=== PATIENT | female | born 1965 | race Caucasian/White ===

== ENCOUNTER 2016-09-02 19:24 | Emergency (ER) | payer OTHER ==
[2016-09-02 19:41] VITALS: BP 133/82; PULSE 64; TEMP 97.8; BMI 35.4
--- NOTE | 2016-09-02 19:49 | PDOC ---
History of Present Illness - General Chief Complaint: Poison [place],Poison [place]ia Exposure Stated Complaint: INFECTION Time Seen by Provider: 09/02/16 19:47 History Source: Patient Exam Limitations: No Limitations - History of Present Illness Initial Comments: CHIEF COMPLAINT: 51 y/o afebrile female c/o itchy rash to face, neck and torso. HISTORY OF PRESENT ILLNESS: The patient states 5 days ago she was gardening and then 2 days ago was around poison angelia. She states she's had the itchy rash since yesterday and thinks it's poison angelia. She denies pain, f/c, n/v/d, CP, SOB, facial swelling. The patient states she's had shingles in the past and states this does NOT feel like shingles. Vital signs on arrival are within normal limits. REVIEW OF SYSTEMS: GENERAL/CONSTITUTIONAL: No fever/chills. HEAD, EYES, EARS, NOSE AND THROAT: No change in vision. No ear pain or discharge. No sore throat. CARDIOVASCULAR: No chest pain or shortness of breath. RESPIRATORY: No cough, wheezing, or hemoptysis. SKIN: +itchy rash to torso, face and neck NEUROLOGIC: No headache, vertigo, loss of consciousness, or loss of sensation. PHYSICAL EXAM: GENERAL: The patient is awake, alert, and fully oriented, in no acute distress. SHe is very well appearing. HEAD: Normal with no signs of trauma. ENT: No angioedema or tongue swelling. EXTREMITIES: Normal range of motion, no edema. NEUROLOGICAL: Normal speech, normal gait. SKIN: groups of small, erythematous papules in clusters along right flank and abdomen, scattered papules on right side of face and left neck. Past History - Past Medical History Allergies/Adverse Reactions: Allergies Allergy/AdvReac Type Severity Reaction Status Date / Time No Known Allergies Allergy Verified 09/02/16 19:38 Home Medications: Ambulatory Orders NK [No Known Home Medication] 09/02/16 Cardiac Disorders: Yes (MURMUR) - Immunization History Immunization Up to Date: Yes (flu utd) - Psycho/Social/Smoking Cessation Hx Anxiety: No Suicidal Ideation: No Smoking History: Never smoked Have you smoked in the past 12 months: No Number of Cigarettes Smoked Daily: 0 Information on smoking cessation initiated: No Hx Alcohol Use: No Drug/Substance Use Hx: No Substance Use Type: None *Physical Exam - Vital Signs Last Vital Signs Temp Pulse Resp BP Pulse Ox 97.8 F 64 18 133/82 100 09/02/16 19:39 09/02/16 19:39 09/02/16 19:39 09/02/16 19:39 09/02/16 19:39 Medical Decision Making - Medical Decision Making A/P: 51 y/o afebrile female with poison angelia rash. Plan is as follows: 1. IM kenalog Instructed the patient to return to the ER immediately with any worsening or concerning symptoms. The patient verbalizes understanding of all instructions, has no further questions and is awaiting discharge. *DC/Admit/Observation/Transfer Diagnosis at time of Disposition: Poison angelia - Discharge Dispostion Disposition: HOME Condition at time of disposition: Good - Patient Instructions Printed Discharge Instructions: DI for Poison [place] Allergy Additional Instructions: Discharge Instructions: -You were given an injection of Kenalog to treat your poison angelia -Please return to the ER immediately with any worsening or concerning symptoms
[2016-09-02] MEDS ORDERED: TRIAMCINOLONE ACET 40MG/1ML VIAL IM ONE (19:56)
== END 2016-09-02 20:14 | disposition home or self-care (01) ==
LOC: JERFT 19:24
PROC: 3E033GC Introduction of Other Therapeutic Substance into Peripheral Vein, Percutaneous Approach (ICD-10-PCS; principal; 2016-09-02)
DX: L23.7 Allergic contact dermatitis due to plants, except food (principal)
CPT/HCPCS: 99281-25

== ENCOUNTER 2016-09-04 11:18 | Emergency (ER) | payer OTHER ==
[2016-09-04 11:33] VITALS: BP 144/99; PULSE 70; TEMP 98; BMI 35.4
--- NOTE | 2016-09-04 13:28 | PDOC ---
History of Present Illness - General Chief Complaint: Allergic Reaction Stated Complaint: REVISIT Time Seen by Provider: 09/04/16 13:10 History Source: Patient Exam Limitations: No Limitations - History of Present Illness Initial Comments: 09/04/16 13:53 Patient is a 51-year-old female denies any significant medical history presents emergency department for pruritic rash to right side, right arm left arm and right upper eyelid. Patient reports being seen in the emergency department and diagnosed with possible poison ramón was given Kenalog however patient states that she has severe allergy to poison ramón and usually needs a Medrol Dosepak in order to resolve. Patient here in the emergency department stating that rash is increasing after the Kenalog and is requesting the Medrol Dosepak. Past Medical History: Denies. Allergies: No known allergies Medications: None Family History: Non-contributory Social History: Denies smoking, alcohol use, or IVDU Review of Systems GENERAL/CONSTITUTIONAL: No fever or chills. No weakness. No weight change. HEAD, EYES, EARS, NOSE AND THROAT: No change in vision. No ear pain or discharge. No sore throat. CARDIOVASCULAR: No chest pain or shortness of breath. RESPIRATORY: No cough, wheezing, or hemoptysis. GASTROINTESTINAL: No nausea, vomiting, diarrhea or constipation. No rectal bleeding. GENITOURINARY: No dysuria, frequency, or change in urination. MUSCULOSKELETAL: No joint or muscle swelling or pain. No neck or back pain. SKIN : Fascicular pruritic rash to right lateral torso, right upper eyelid, right upper arm and left upper arm. NEUROLOGIC: No headache, vertigo, loss of consciousness, or loss of sensation. ENDOCRINE: No increased thirst. No abnormal weight change. HEMATOLOGIC/LYMPHATIC: No anemia, easy bleeding, or history of blood clots. ALLERGIC/IMMUNOLOGIC: No hives or skin allergy. No latex allergy. Physical Exam: GENERAL: The patient is awake, alert, and fully oriented, in no acute distress. HEAD: Normal with no signs of trauma. EYES: Pupils equal, round and reactive to light, extraocular movements intact, sclera anicteric, conjunctiva clear. ENT: Ears normal, nares patent, oropharynx clear without exudates. Moist mucous membranes. No uvula deviation NECK: Normal range of motion, supple without lymphadenopathy, JVD, or masses. LUNGS: Breath sounds equal, clear to auscultation bilaterally. No wheezes, and no crackles. HEART: Regular rate and rhythm, normal S1 and S2 without murmur, rub or gallop. ABDOMEN: Soft, nontender, normoactive bowel sounds. No guarding, no rebound. No masses. No bruising or abrasions MUSCULOSKELETAL: Normal range of motion, no edema. No clubbing or cyanosis. No cords, erythema, or tenderness. No CVA Tenderness NEUROLOGICAL: Cranial nerves II through XII grossly intact. Normal speech, normal gait. SKIN: Warm, Dry, normal turgor, vesicular pruritic rash to right lateral torso, right upper arm and left upper arm. Toxicodendron pattern to right upper arm. Past History - Past Medical History Allergies/Adverse Reactions: Allergies Allergy/AdvReac Type Severity Reaction Status Date / Time No Known Allergies Allergy Verified 09/04/16 11:31 Home Medications: Ambulatory Orders Loratadine [Claritin] 10 mg PO DAILY #30 tablet 09/04/16 Methylprednisolone [Medrol Dose Mina] 4 mg PO ASDIR #21 tablet 09/04/16 Ranitidine HCl [Zantac] 150 mg PO DAILY #7 tablet 09/04/16 Cardiac Disorders: Yes (MURMUR) - Immunization History Immunization Up to Date: Yes (flu utd) - Psycho/Social/Smoking Cessation Hx Anxiety: No Suicidal Ideation: No Smoking History: Never smoked Have you smoked in the past 12 months: No Number of Cigarettes Smoked Daily: 0 Hx Alcohol Use: No Drug/Substance Use Hx: No Substance Use Type: None *Physical Exam - Vital Signs Last Vital Signs Temp Pulse Resp BP Pulse Ox 98 F 70 18 144/99 99 09/04/16 11:31 09/04/16 11:31 09/04/16 11:31 09/04/16 11:31 09/04/16 11:31 Medical Decision Making - Medical Decision Making 09/04/16 13:57 A/P: Patient with rash, pruritic. Patient with history of allergic reaction to poison ramón. Eyes any current respiratory complaints. No wheezing. Stridor. Explained to patient that she is to follow-up with dermatology, we will DC on Medrol Dosepak, Zantac and Claritin, questionable allergy to poison ramón . I discussed the physical exam findings, ancillary test results and final diagnoses with the patient. I answered all of the patient's questions. The patient was satisfied with the care received and felt comfortable with the discharge plan and treatment plan. The patient will call to follow-up and will return to the Emergency Department with any new, persistent or worsening symptoms. *DC/Admit/Observation/Transfer Diagnosis at time of Disposition: Rash and nonspecific skin eruption - Discharge Dispostion Disposition: HOME Condition at time of disposition: Good Admit: No - Prescriptions Prescriptions: Loratadine [Claritin] 10 mg PO DAILY #30 tablet Methylprednisolone [Medrol Dose Mina] 4 mg PO ASDIR #21 tablet Ranitidine HCl [Zantac] 150 mg PO DAILY #7 tablet - Referrals Referrals: Ke Saleem [Non Staff, Medical] - Linda Kang MD [Staff Physician] - - Patient Instructions Additional Instructions: Please refrain from rubbing or scratching areas. After 72 hours if symptoms are not starting to resolve recommend follow-up with dermatology If any increased pain tonight, visual disturbance, or any other concerns return to ER
== END 2016-09-04 13:30 | disposition home or self-care (01) ==
LOC: JERFT 11:18
DX: R21 Rash and other nonspecific skin eruption (principal)
CPT/HCPCS: 99281-25

== ENCOUNTER 2016-10-05 10:39 | Emergency (ER) | payer OTHER ==
[2016-10-05 10:52] VITALS: BP 122/74; PULSE 69; TEMP 98.3; BMI 35.4
[2016-10-05] MEDS ORDERED: TRIAMCINOLONE ACET 40MG/1ML VIAL IM ONE (11:26)
--- NOTE | 2016-10-05 11:26 | PDOC ---
History of Present Illness - General Chief Complaint: Poison [place],Poison [place] Exposure Stated Complaint: POSION [place] Time Seen by Provider: 10/05/16 11:00 History Source: Patient Exam Limitations: No Limitations - History of Present Illness Initial Comments: 10/05/16 11:08 Pt. is a 51-year-old female past medical history of allergies to poison kedar, presents to the emergency department today redness on the left side of her face. She was gardening 3 days ago and she may have come into contact with poison kedar. Patient states that the left side of her face became a little red yesterday and swelled up overnight. This is usual for her poison kedar attacks. She states that the area is itchy. Denies visual changes, double vision, pain with extraocular movements. Denies sore throat, ear pain, congestion, fevers, chills, nausea, vomiting, and diarrhea. Past History - Travel Traveled outside of the country in the last 30 days: No Close contact w/someone who was outside of country & ill: No - Past Medical History Allergies/Adverse Reactions: Allergies Allergy/AdvReac Type Severity Reaction Status Date / Time No Known Allergies Allergy Verified 10/05/16 10:49 Home Medications: Ambulatory Orders Loratadine [Claritin] 10 mg PO DAILY #30 tablet 09/04/16 Methylprednisolone [Medrol Dose Mina] 4 mg PO ASDIR #21 tablet 09/04/16 Ranitidine HCl [Zantac] 150 mg PO DAILY #7 tablet 09/04/16 Methylprednisolone [Medrol Dose Mina] 4 mg PO ASDIR #21 tablet 10/05/16 Cardiac Disorders: Yes (MURMUR) - Immunization History Immunization Up to Date: Yes (flu utd) - Psycho/Social/Smoking Cessation Hx Anxiety: No Suicidal Ideation: No Smoking History: Never smoked Have you smoked in the past 12 months: No Number of Cigarettes Smoked Daily: 0 Information on smoking cessation initiated: No Hx Alcohol Use: No Drug/Substance Use Hx: No Substance Use Type: None Review of Systems - Review of Systems Constitutional: No: Chills, Fever, Malaise, Weakness HEENTM: No: Eye Pain, Blurred Vision, Recent change in vision, Double Vision, Ear Pain, Nose Pain, Throat Pain, Throat Swelling, Difficulty Swallowing Respiratory: No: Cough, Shortness of Breath, Stridor Cardiac (ROS): No: Chest Pain, Palpitations, Chest Tightness ABD/GI: No: Diarrhea, Nausea, Vomiting Integumentary: Yes: Pruritus, Rash, Other (swelling to L side of face) *Physical Exam - Vital Signs Last Vital Signs Temp Pulse Resp BP Pulse Ox 98.3 F 69 18 122/74 100 10/05/16 10:49 10/05/16 10:49 10/05/16 10:49 10/05/16 10:49 10/05/16 10:49 - Physical Exam General Appearance: Yes: Nourished, Appropriately Dressed, Other (Swollen L side of face from L eyebrow to L mandible. Breathing easily). No: Apparent Distress HEENT: positive: EOMI, MICHAEL, Normal Voice, TMs Normal, Pharynx Normal. negative : Pharyngeal Erythema, Tonsillar Exudate, Tonsillar Erythema, Rhinorrhea, Excessive drooling Neck: positive: Trachea midline, Supple. negative: Tender, Rigid, Lymphadenopathy (R), Lymphadenopathy (L) Respiratory/Chest: positive: Lungs Clear, Normal Breath Sounds. negative: Respiratory Distress, Accessory Muscle Use Cardiovascular: positive: Regular Rhythm, Regular Rate, S1, S2 (present). negative: Murmur Integumentary: positive: Dry, Warm, Erythema (with associated pruritis), Rash ( swollen L face. Rash begins at the level of the eyebrow and travels down the L cheek to the L mandible. The L lower eye lid is mildly swollen, and the swelling does not extend into the orbit.) Neurologic: positive: oral and maxillofacial surgery resident II-XII NML intact, Fully Oriented, Alert, Normal Mood/ Affect, Normal Response, Motor Strength 5/5 Medical Decision Making - Medical Decision Making 10/05/16 10:34 Pt. is a 51 y/o female with PMH of allergy to poison kedar presents to the ED with complaints of redness, swelling and itching to the left side of her face following some gardening 3 days ago. Given pt's history of severe skin reactions to poison kedar, will treat with 40mg kenolog IM and a Medrol dose pack. Pt. is instructed to continue using over the counter hydrocortisone 1% as stronger steroids are not indicated for the face. Pt. is also instructed to take zyrtec daily. Pt. has no difficulty breathing and does not feel short of breath. Instructed patient to follow up with her primary care doctor in the next two days. Also advised pt to follow up with ophthalmology as the rash is close to the eye. Will discharge home at this time. Pt. understands all discharge instructions and all questions were answered at this time. *DC/Admit/Observation/Transfer Diagnosis at time of Disposition: Poison kedar - Discharge Dispostion Disposition: HOME Condition at time of disposition: Improved Admit: No - Prescriptions Prescriptions: Methylprednisolone [Medrol Dose Mina] 4 mg PO ASDIR #21 tablet - Referrals Referrals: Sagar Pritchard MD [Primary Care Provider] - 24 hours Jermaine Houser MD [Staff Physician] - 3 days - Patient Instructions Printed Discharge Instructions: DI for Poison [place] Allergy Additional Instructions: You have an allergic reaction to poison kedar. Your given a steroid injection today in the emergency department. Your also prescribed a Medrol Dosepak. Take the dose pack as prescribed and take the entire pack even if you feel better. Avoid poison kedar to limit your exposure. He may use 1% [id number] hydrocortisone cream on your face as needed for itch. Do not put this medication around her eye. Follow up with you primary care doctor within one week. Also if you have any changes in your vision call the kennel keeper. You were given a referral in her discharge instructions. Return to the emergency department if you have any new fevers, chills, worsening of your rash, headache, or any changes in your symptoms.
== END 2016-10-05 12:02 | disposition home or self-care (01) ==
LOC: JERFT 10:39
PROC: 3E0233Z Introduction of Anti-inflammatory into Muscle, Percutaneous Approach (ICD-10-PCS; principal; 2016-10-05)
DX: L23.7 Allergic contact dermatitis due to plants, except food (principal)
CPT/HCPCS: 96372; 99281-25

== ENCOUNTER 2018-02-20 17:39 | Emergency (ER) | payer OTHER ==
--- NOTE | 2018-02-20 17:45 | PDOC ---
Rapid Medical Evaluation Chief Complaint: Wheezing Time Seen by Provider: 02/20/18 17:43 Medical Evaluation: Allergies Allergy/AdvReac Type Severity Reaction Status Date / Time No Known Allergies Allergy Verified 10/05/16 10:49 02/20/18 17:44 Pt c/o: cough, nasal congestion and wheezing Pt on exam: LCTA, VSS Pt ordered for: none Pt to proceed to the ED Discharge Disposition - Diagnosis URI (upper respiratory infection) - Referrals Referrals: Sagar Pritchard MD [Primary Care Provider] - - Patient Instructions - Post Discharge Activity
[2018-02-20 17:46] VITALS: BP 131/90; PULSE 74; TEMP 97.4; BMI 35.4
[2018-02-20] MEDS ORDERED: DEXAMETHASONE LIQUID 0.5 MG/5 ML 240 ML BULK BOTTLE PO ONE (18:03)
[2018-02-20] MEDS ORDERED: DEXAMETHASONE SOD PHOSPHATE 10 MG/1 ML VIAL ONE (18:05)
--- NOTE | 2018-02-20 18:22 | PDOC ---
History of Present Illness - General Chief Complaint: Wheezing Stated Complaint: Wheezing Time Seen by Provider: 02/20/18 17:43 - History of Present Illness Initial Comments: 02/20/18 18:20 52-year-old female without comorbidities presents for evaluation of cough 5 days without systemic symptoms. Past History - Past Medical History Allergies/Adverse Reactions: Allergies Allergy/AdvReac Type Severity Reaction Status Date / Time No Known Allergies Allergy Verified 10/05/16 10:49 Home Medications: Ambulatory Orders NK [No Known Home Medication] 02/20/18 Cardiac Disorders: Yes (MURMUR) COPD: No - Immunization History Immunization Up to Date: Yes (flu utd) - Suicide/Smoking/Psychosocial Hx Smoking History: Never smoked Have you smoked in the past 12 months: No Number of Cigarettes Smoked Daily: 0 Hx Alcohol Use: No Drug/Substance Use Hx: No Substance Use Type: None Review of Systems - Review of Systems Constitutional: No: Fever Respiratory: Yes: Cough *Physical Exam - Vital Signs Last Vital Signs Temp Pulse Resp BP Pulse Ox 97.4 F L 74 16 131/90 99 02/20/18 17:43 02/20/18 17:43 02/20/18 17:43 02/20/18 17:43 02/20/18 17:43 - Physical Exam Comments: 02/20/18 18:20 HEAD: NC/AT EYES: Conjuntiva clear Ears: Canals and TM's normal NOSE: No d/c THROAT: Moist mucous membrances, oral pharanx clear, uvula midline NECK: Supple without adenopathy CARDIAC: S1 S2 LUNGS: CTA Full and Equal breath sounds ABDOMEN: Soft NT ND MS: Full ROM in all joints without edema NEUROLOGIC: No gross sensory or motor deficits, NVID SKIN: Normal color and temperature no lesions or rashes ED Treatment Course - RADIOLOGY Radiology Studies Ordered: Category Date Time Status CHEST PA & LAT [RAD] Stat Radiology 02/20/18 18:03 Taken - Medications Given in the ED: ED Medications Discontinued Medications Generic Name Dose Route Start Last Admin Trade Name Freq PRN Reason Stop Dose Admin Dexamethasone 10 mg 02/20/18 18:03 02/20/18 18:19 Decadron Liquid - PO 02/20/18 18:04 10 mg ONCE ONE Administration Medical Decision Making - Medical Decision Making 02/20/18 18:21 Chest x-ray clear most likely a viral bronchitis. Patient states her cough keeps her awake at night treated with Decadron and have her follow-up with her PCP *DC/Admit/Observation/Transfer Diagnosis at time of Disposition: URI (upper respiratory infection), Bronchitis - Discharge Dispostion Disposition: HOME Condition at time of disposition: Stable Decision to Admit order: No - Referrals Referrals: Sagar Pritchard MD [Primary Care Provider] - - Patient Instructions Printed Discharge Instructions: Acute Bronchitis, DI for Acute Bronchitis Additional Instructions: He was treated with a steroid which should help with her cough and breathing at night return to the emergency room should symptoms worsen or go unresolved. Continue with the Motrin and Tylenol as needed as well as Robitussin DM. Follow- up with her primary care physician one to 2 days for further evaluation and treatment options. - Post Discharge Activity
== END 2018-02-20 18:24 | disposition home or self-care (01) ==
LOC: JERFT 17:39
DX: J20.9 Acute bronchitis, unspecified (principal)
CPT/HCPCS: 71046-TC-FY; 99281-25

== ENCOUNTER 2018-10-11 10:48 | Emergency (ER) | payer OTHER ==
[2018-10-11 11:05] VITALS: BP 102/56; PULSE 65; TEMP 98.2; BMI 35.4
[2018-10-11] MEDS ORDERED: TRIAMCINOLONE ACETONIDE 40 MG/ML 10 ML VIAL SQ ONE (11:21)
[2018-10-11] MEDS ORDERED: TRIAMCINOLONE ACET 40MG/1ML VIAL ONE (11:25)
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
[2018-10-11] MEDS ORDERED: TRIAMCINOLONE ACET 40MG/1ML VIAL IM ONE (11:29)
[2018-10-11 11:56] LABS: EPI CELLS 2.9 /HPF (0-5/HPF); HYALINE CASTS 3 /lpf (0-8); URINE APPEARANCE CLEAR; URINE BACTERIA 127.5 /hpf (NEGATIVE); URINE BILIRUBIN NEGATIVE (NEGATIVE); URINE COLOR YELLOW; URINE GLUCOSE (UA) NEGATIVE (NEGATIVE); URINE KETONE NEGATIVE (NEGATIVE); URINE LEUK ESTERASE 3+ (NEGATIVE); URINE NITRITE NEGATIVE (NEGATIVE); URINE PROTEIN NEGATIVE (NEGATIVE); URINE RBC 6 /hpf (0-4); URINE UROBILINOGEN 0.2 mg/dL (0.2-1.0); URINE WBC 164 /hpf (0-5)
== END 2018-10-11 12:20 | disposition home or self-care (01) ==
LOC: JERFT 10:48
PROC: 3E023GC Introduction of Other Therapeutic Substance into Muscle, Percutaneous Approach (ICD-10-PCS; principal; 2018-10-11)
DX: L30.8 Other specified dermatitis (principal); N30.90 Cystitis, unspecified without hematuria
CPT/HCPCS: 81003; 87086; 99281-25

== ENCOUNTER 2018-10-24 17:31 | Emergency (ER) | payer OTHER ==
[2018-10-24 17:36] VITALS: BP 126/89; PULSE 78; TEMP 98; BMI 35.4
--- NOTE | 2018-10-24 17:36 | PDOC ---
Rapid Medical Evaluation Medical Evaluation: Allergies Allergy/AdvReac Type Severity Reaction Status Date / Time No Known Allergies Allergy Verified 10/24/18 17:33 10/24/18 17:33 I have performed a brief in-person evaluation of this patient. The patient presents with a chief complaint of: left upper back pain x4 days Pertinent physical exam findings: palpable muscle spasm to left upper back I have ordered the following: nothing The patient will proceed to the ED for further evaluation. Discharge Disposition - Diagnosis Muscle spasm - Referrals - Patient Instructions - Post Discharge Activity
--- NOTE | 2018-10-24 18:48 | PDOC ---
History of Present Illness - General Chief Complaint: Pain, Acute Stated Complaint: PAIN Time Seen by Provider: 10/24/18 17:33 History Source: Patient Exam Limitations: No Limitations Past History - Past Medical History Allergies/Adverse Reactions: Allergies Allergy/AdvReac Type Severity Reaction Status Date / Time No Known Allergies Allergy Verified 10/24/18 17:33 Home Medications: Ambulatory Orders Cephalexin Monohydrate [Keflex -] 500 mg PO BID #20 capsule 10/11/18 Cardiac Disorders: Yes (MURMUR) COPD: No - Immunization History Immunization Up to Date: Yes (flu utd) - Suicide/Smoking/Psychosocial Hx Smoking History: Never smoked Have you smoked in the past 12 months: No Number of Cigarettes Smoked Daily: 0 Hx Alcohol Use: No Drug/Substance Use Hx: No Substance Use Type: None *Physical Exam - Vital Signs Last Vital Signs Temp Pulse Resp BP Pulse Ox 98.0 F 78 18 126/89 99 10/24/18 17:34 10/24/18 17:34 10/24/18 17:34 10/24/18 17:34 10/24/18 17:34 - Physical Exam Respiratory/Chest: positive: Lungs Clear, Normal Breath Sounds. negative: Respiratory Distress Cardiovascular: positive: Regular Rhythm, Regular Rate, S1, S2. negative: Murmur Musculoskeletal: negative: CVA Tenderness (R), CVA Tenderness (L), Muscle Spasm , Vertebral Tenderness Neurologic: positive: Alert, Normal Mood/Affect Medical Decision Making - Medical Decision Making 53 y/o F with no sig pmh presents with L flank pain around 4-5 days. Patient also c/o dysuria x 2 weeks, was seen in ED 2 weeks ago and prescribed Keflex; urine culture came back negative. As patient was still symptomatic, she saw a PA in Dr. Kemp's office today who repeated her urine test and culture; she was prescribed Bactrim and Pyridium x 3 days (patient has not yet picked up her prescriptions). Patient comes to ED for further evaluation of her flank pain. Endorses L flank pain is worse with inspiration and movement of her body. Denies fever, cough, sob, cp, abd pain, n/v, hematuria, vaginal rash, unusual vaginal discharge, trauma. Denies recent travel, recent surgeries. Consider pyelo given location of pain though afebrile and no CVA tenderness; possibly muscular in origin?; unlikely PNA/kidney stones/PE (Patient meets 0 points of Wells criteria) Attempted to reach Dr. Kemp, but he was unable to provide any further information Plan: UA, UCx 10/24/18 18:45 Urine still pending Signed out to MAGAZINE WRITER Kristian 10/24/18 19:57 *DC/Admit/Observation/Transfer Diagnosis at time of Disposition: Dysuria - Referrals Referrals: Sagar Pritchard MD [Primary Care Provider] - - Patient Instructions - Post Discharge Activity
[2018-10-24 20:18] LABS: HYALINE CASTS 1 /lpf (0-8); URINE APPEARANCE CLEAR; URINE BACTERIA 128.5 /hpf (NEGATIVE); URINE BILIRUBIN NEGATIVE (NEGATIVE); URINE COLOR YELLOW; URINE GLUCOSE (UA) NEGATIVE (NEGATIVE); URINE KETONE NEGATIVE (NEGATIVE); URINE LEUK ESTERASE 2+ (NEGATIVE); URINE NITRITE NEGATIVE (NEGATIVE); URINE PROTEIN NEGATIVE (NEGATIVE); URINE RBC 2 /hpf (0-4); URINE UROBILINOGEN 0.2 mg/dL (0.2-1.0); URINE WBC 33 /hpf (0-5)
--- NOTE | 2018-10-24 20:28 | PDOC ---
*Physical Exam - Vital Signs Last Vital Signs Temp Pulse Resp BP Pulse Ox 98.0 F 78 18 126/89 99 10/24/18 17:34 10/24/18 17:34 10/24/18 17:34 10/24/18 17:34 10/24/18 17:34 - Physical Exam Comments: 10/24/18 20:24 Mild cvat l side ED Treatment Course - ADDITIONAL ORDERS Additional order review: Laboratory Results 10/24/18 18:48 Urine Color Yellow Urine Appearance Clear Urine pH 6.0 Ur Specific [place] 1.020 Urine Protein Negative Urine Glucose (UA) Negative Urine Ketones Negative Urine Blood 1+ H Urine Nitrite Negative Urine Bilirubin Negative Urine Urobilinogen 0.2 Ur Leukocyte Esterase 2+ H Urine WBC (Auto) 33 Urine RBC (Auto) 2 Urine Casts (Auto) 1 U Epithel Cells (Auto) 2.0 Urine Bacteria (Auto) 128.5 Medical Decision Making - Medical Decision Making 10/24/18 20:26 will treat for cyctitis possible pylo *DC/Admit/Observation/Transfer Diagnosis at time of Disposition: Dysuria, UTI (urinary tract infection) - Discharge Dispostion Disposition: HOME Condition at time of disposition: Stable Decision to Admit order: No - Prescriptions Prescriptions: Sulfamethoxazole/Trimethoprim [Bactrim Ds -] 1 tab PO BID 14 Days #28 tablet - Referrals Referrals: Sagar Pritchard MD [Primary Care Provider] - - Patient Instructions Printed Discharge Instructions: DI for Urinary Tract Infection (UTI) Additional Instructions: Least take the antibiotics as directed. Return to the emergency room for worsening symptoms. Follow-up with your primary care physician in 1-2 days without fail. - Post Discharge Activity
== END 2018-10-24 20:31 | disposition home or self-care (01) ==
LOC: JERFT 17:31
DX: N39.0 Urinary tract infection, site not specified (principal)
CPT/HCPCS: 81003; 87077; 87086; 99282-25

== ENCOUNTER 2018-11-01 16:09 | Emergency (ER) | payer OTHER ==
--- NOTE | 2018-11-01 16:12 | PDOC ---
Rapid Medical Evaluation Time Seen by Provider: 11/01/18 16:10 Medical Evaluation: Allergies Allergy/AdvReac Type Severity Reaction Status Date / Time No Known Allergies Allergy Verified 10/24/18 17:33 11/01/18 16:11 I have performed a brief in-person evaluation of this patient. The patient presents with a chief complaint of: sent by PMD for dysuria with flank pain Pertinent physical exam findings: No focal deficits I have ordered the following: urine, labs, ctap The patient will proceed to the ED for further evaluation. 11/01/18 16:13 11/01/18 16:14 Discharge Disposition - Diagnosis Dysuria - Referrals - Patient Instructions - Post Discharge Activity
[2018-11-01 16:14] VITALS: BMI 35.4
--- NOTE | 2018-11-01 17:03 | PDOC ---
History of Present Illness - General Chief Complaint: Pain, Acute Stated Complaint: SENT BY PCP Time Seen by Provider: 11/01/18 16:10 History Source: Patient Exam Limitations: No Limitations - History of Present Illness Initial Comments: 11/01/18 19:30 53 yo F with no past medical history presents to the emergency department with left flank pain with dysuria. Per the patient, she began having dysuria on 10/09 and was given a prescription of keflex for 3 days. She had persistence of dysuria and developed left flank pain on 10/23/2018. She was given a course of bactrim for 3 days and then a course of 14 days (completed 7/14 days) and has progressive worsening of pain on the left flank that is ascending. The pain is sharp, constant, and non radiating. Denies the following: fevers, chills, nausea , vomiting, SOB, chest pain, diarrhea, hematochezia, and leg pain/swelling. LMP 2 years ago. Allergies: NKDA Past History - Past Medical History Allergies/Adverse Reactions: Allergies Allergy/AdvReac Type Severity Reaction Status Date / Time No Known Allergies Allergy Verified 11/01/18 16:14 Home Medications: Ambulatory Orders Cephalexin Monohydrate [Keflex -] 500 mg PO BID #20 capsule 10/11/18 Phenazopyridine HCl [Pyridium] 200 mg PO TID #6 tablet 10/24/18 Phenazopyridine HCl [Pyridium] 200 mg PO TID #6 tablet 10/24/18 Sulfamethoxazole/Trimethoprim [Bactrim Ds -] 1 tab PO BID 14 Days #28 tablet Sulfamethoxazole/Trimethoprim [Bactrim Ds -] 1 tab PO BID 14 Days #28 tablet Naproxen [Naprosyn] 500 mg PO BID #15 tablet 11/01/18 Cardiac Disorders: Yes (MURMUR) COPD: No - Immunization History Immunization Up to Date: Yes (flu utd) - Suicide/Smoking/Psychosocial Hx Smoking History: Never smoked Have you smoked in the past 12 months: No Number of Cigarettes Smoked Daily: 0 Hx Alcohol Use: No Drug/Substance Use Hx: No Substance Use Type: None Review of Systems - Review of Systems Able to Perform ROS?: Yes Is the patient limited German proficient: No Constitutional: No: Chills, Diaphoresis, Fever, Weakness HEENTM: No: Eye Pain, Ear Pain, Nose Pain, Throat Pain, Mouth Pain Respiratory: No: Cough, Shortness of Breath, Hemoptysis Cardiac (ROS): No: Chest Pain, Lightheadedness, Palpitations, Syncope, Chest Tightness ABD/GI: No: Constipated, Diarrhea, Nausea, Rectal Bleeding, Vomiting, Tarry Stools : Yes: Burning, Dysuria, Flank Pain (left), Hematuria. No: Incontinence Musculoskeletal: No: Back Pain, Joint Pain, Neck Pain Integumentary: No: Bruising, Erythema, Rash Neurological: No: Headache, Tingling, Ataxia Psychiatric: No: Frequent Crying, Stressors, Change in Appetite Endocrine: No: Unexplained Weight Gain Hematologic/Lymphatic: No: Anemia *Physical Exam - Vital Signs Last Vital Signs Temp Pulse Resp BP Pulse Ox 98 F 75 16 111/58 L 97 11/01/18 16:11 11/01/18 16:11 11/01/18 16:11 11/01/18 16:11 11/01/18 16:11 - Physical Exam General Appearance: Yes: Nourished, Appropriately Dressed. No: Apparent Distress, Intoxicated HEENT: positive: EOMI, MICHAEL, Normal Voice, Symmetrical, Pharynx Normal, Hearing Grossly Normal. negative: Pale Conjunctivae, Scleral Icterus (R), Scleral Icterus (L), Muffled/Hoarse voice, Pharyngeal Erythema, Tonsillar Exudate, Tonsillar Erythema, Nasal Congestion, Rhinorrhea, Sinus Tenderness, Excessive drooling Neck: positive: Trachea midline, Supple. negative: Tender, Lymphadenopathy (R) , Lymphadenopathy (L), Tender lateral, Tender midline Respiratory/Chest: positive: Lungs Clear, Normal Breath Sounds. negative: Chest Tender, Respiratory Distress, Accessory Muscle Use, Crackles, Rales, Rhonchi, Stridor, Wheezing, Hyperresonant Cardiovascular: positive: Regular Rhythm, Regular Rate, S1, S2. negative: Systolic Murmur Gastrointestinal/Abdominal: positive: Normal Bowel Sounds, Flat, Soft. negative : Tender, Rebound, Tenderness Musculoskeletal: positive: Normal Inspection, CVA Tenderness (L). negative: CVA Tenderness (R), Vertebral Tenderness Extremity: positive: Normal Capillary Refill, Normal Inspection, Normal Range of Motion. negative: Tender, Swelling, Calf Tenderness Integumentary: positive: Normal Color, Dry, Warm. negative: Swelling, Ecchymosis Neurologic: positive: oxyacetylene welder II-XII NML intact, Fully Oriented, Alert, Normal Mood/ Affect, Normal Response, Motor Strength 07/30 ED Treatment Course - LABORATORY CBC & Chemistry Diagram: 11/01/18 17:20 11/01/18 17:20 Medical Decision Making - Medical Decision Making 53 yo F with no past medical history presents to the emergency department with left flank pain with dysuria. Initial vitals: Initial Vital Signs Temp Pulse Resp BP Pulse Ox 98 F 75 16 111/58 L 97 11/01/18 16:11 11/01/18 16:11 11/01/18 16:11 11/01/18 16:11 11/01/18 16:11 Work up: patient presents from Dr. Hinkle for pyelonephritis work up. per her history, concerns exist for abx resistant UTI with potential complications of pyelonephritis. will obtain labs and CT abdomen pelvis to rule out pyelonephritis. will obtain UA and cultures. Laboratory Tests 11/01/18 11/01/18 11/01/18 17:20 17:20 19:02 WBC 8.3 RBC 4.16 Hgb 13.0 Hct 38.8 MCV 93.3 MCH 31.2 MCHC 33.5 RDW 12.9 Plt Count 275 MPV 7.6 Absolute Neuts (auto) 5.3 Neutrophils % 64.0 Lymphocytes % 27.8 Monocytes % 5.7 Eosinophils % 1.6 Basophils % 0.9 Nucleated RBC % 0 Sodium 141 Potassium 4.5 Chloride 106 Carbon Dioxide 26 Anion Gap 9 BUN 25.2 H Creatinine 1.1 Est GFR (CKD-EPI)AfAm 65.92 Est GFR (CKD-EPI)NonAf 56.87 Random Glucose 88 Calcium 8.8 Urine Color Yellow Urine Appearance Clear Urine pH 5.5 Ur Specific [place] 1.007 L Urine Protein Negative Urine Glucose (UA) Negative Urine Ketones Negative Urine Blood Trace Urine Nitrite Negative Urine Bilirubin Negative Urine Urobilinogen 0.2 Ur Leukocyte Esterase Negative Urine WBC (Auto) 0.9 Urine RBC (Auto) 0.7 Urine Casts (Auto) 0 U Epithel Cells (Auto) 1.0 Urine Bacteria (Auto) 5.1 At the time of sign out, the patient's ct abdomen and pelvis report was pending. the patient was signed out to Dr. Rome. *DC/Admit/Observation/Transfer Diagnosis at time of Disposition: Dysuria - Prescriptions Prescriptions: Naproxen [Naprosyn] 500 mg PO BID #15 tablet - Referrals Referrals: Lesley Hinkle [Primary Care Provider] - - Patient Instructions Additional Instructions: You came into the ED for pain when you urinate and when you breathe. Urinalysis shows you have a urinary tract infection. The CT scan of your chest did not show a blood clot. The CT scan of your abdomen and pelvis showed ostitis pubis, which is an inflammation of the symphysis pubis. Anti-inflammatory prescription has been sent to your pharmacy. Take as instructed. Continue to take antibiotics for the urinary tract infection that you have already been prescribed and make sure you finish the course. Follow up with your [employer] certified internetwork expert in the next 72 hours to discuss this ED visit and for further evaluation of your symptoms. Your care is not complete until you do so. Call and make an appointment. The CT scan also showed a small 2 mm calcified nodule/granuloma in your lung for which you should follow up with your primary care doctor. A copy of the CT reports have been given to you. Immediate medical attention is required if you experience: you develop high fevers, chills, persistent vomiting, stop urinating, or any new or concerning symptoms. If you think you have an emergency, call for medical help right away. - Post Discharge Activity Forms/Work/School Notes: Back to Work
[2018-11-01] MEDS ORDERED: KETOROLAC TROMETHAMINE 15 MG/ML VIAL IVPUSH ONE (17:05)
[2018-11-01] MEDS ORDERED: SODIUM CHLORIDE 0.9% 1000 ML INFUS.BAG IV ONE (17:05)
[2018-11-01] MEDS ORDERED: KETOROLAC TROMETHAMINE 15 MG/ML VIAL ONE (17:35)
--- NOTE | 2018-11-01 17:37 | PDOC ---
Documentation entered by Jessie Dixon SCRIBE, acting as scribe for Lea Merino DO. Lea Merino DO: This documentation has been prepared by the Zack hopper Sammi, SCRIBE, under my direction and personally reviewed by me in its entirety. I confirm that the documentation accurately reflects all work, treatment, procedures, and medical decision making performed by me. Attending Attestation - Resident Resident Name: Daryn Hastings - ED Attending Attestation I have performed the following: I have examined & evaluated the patient, The case was reviewed & discussed with the resident, I agree w/resident's findings & plan, Exceptions are as noted - HPI HPI: 11/01/18 17:40 The patient is a 53 year old female, with no significant PMH, who presents to the emergency department for evaluation of several weeks of dysuria and increased urinary frequency with associated left flank pain. The patient was evaluated in our ED recently for similar symptoms and has failed outpatient treatments of Keflex and Bactrim. She was sent in by her PCP Arin for further testing. Allergies: NKA PCP: Lesley Hinkle - Physicial Exam PE: 11/01/18 17:41 GENERAL: Awake, alert, and fully oriented, in no acute distress NECK: Normal ROM, supple, no lymphadenopathy, JVD, or masses LUNGS: Breath sounds equal, clear to auscultation bilaterally. No wheezes, and no crackles HEART: Regular rate and rhythm, normal S1 and S2, no murmurs, rubs or gallops ABDOMEN: (+) L flank tenderness. (+)L CVA tenderness. Soft, normoactive bowel sounds. No guarding, no rebound. No masses EXTREMITIES: Normal range of motion, no edema. No clubbing or cyanosis. No cords, erythema, or tenderness NEUROLOGICAL: Normal speech, normal gait. No focal findings. SKIN: Warm, Dry, normal turgor, no rashes or lesions noted. - Medical Decision Making 11/01/18 17:34 I, Dr. Lea Merino DO, attest that this document has been prepared under my direction and personally reviewed by me in its entirety. I further attest, that it accurately reflects all work, treatment, procedures and medical decision -making performed by me. 11/01/18 17:35 a/p: 53yo female with L flank pain and intermittent episodes of hematuria -pt has been on keflex and currently on bactrim for uti -pt with flank pain, concern about pyelo vs infected stone -will send labs, ua, ucx, ct abd/pelvis without contrast -will give ivf hydration -pt is nontoxic in appearance, but does have worsening dysuria and flank pain despite a week of bactrim -will monitor and reassess 11/01/18 18:54 no elevated wbc 11/01/18 20:[address] shows poss osteitis pubis, will perform pelvic exam and examine pubis region call placed to Dr. Hinkle to update on labs and imaging 11/01/18 20:39 discussed imaging and ua results with Dr. Hinkle and with the patient pt still c/o chest pain with deep inspiration will obtain cta chest will perform pelvic exam 11/01/18 22:35 cta chest neg for pe small granuloma/nodule - will need follow up with PMD for further eval given copy of ct report stable for dc to home with bradyyn for osteitis pubis
[2018-11-01 17:41] LABS: BASO % 0.9 % (0-2.0); EOS % 1.6 % (0-4.5); HEMATOCRIT 38.8 % (32.4-45.2); LYMPH % 27.8 % (8-40); MCH 31.2 pg (25.7-33.7); MCHC 33.5 g/dl (32.0-36.0); MEAN CELL VOLUME 93.3 fl (80-96); MEAN PLT VOLUME 7.6 fl (7.5-11.1); MONO % 5.7 % (3.8-10.2); PLATELET COUNT 275 K/MM3 (134-434); RBC 4.16 M/mm3 (3.60-5.2); RDW 12.9 % (11.6-15.6); WHITE BLOOD COUNT 8.3 K/mm3 (4.0-10.0)
[2018-11-01 18:01] LABS: BLOOD UREA NITROGEN 25.2 mg/dL (7-18); CALCIUM 8.8 mg/dL (8.5-10.1); CREATININE 1.1 mg/dL (0.55-1.3); POTASSIUM 4.5 mmol/L (3.5-5.1)
--- NOTE | 2018-11-01 20:10 | PDOC ---
*Physical Exam - Vital Signs Last Vital Signs Temp Pulse Resp BP Pulse Ox 98 F 75 16 111/58 L 97 11/01/18 16:11 11/01/18 16:11 11/01/18 16:11 11/01/18 16:11 11/01/18 16:11 ED Treatment Course - LABORATORY CBC & Chemistry Diagram: 11/01/18 17:20 11/01/18 17:20 - ADDITIONAL ORDERS Additional order review: Laboratory Results 11/01/18 17:20 Sodium 141 Potassium 4.5 Chloride 106 Carbon Dioxide 26 Anion Gap 9 BUN 25.2 H Creatinine 1.1 Est GFR (CKD-EPI)AfAm 65.92 Est GFR (CKD-EPI)NonAf 56.87 Random Glucose 88 Calcium 8.8 11/01/18 17:20 RBC 4.16 MCV 93.3 MCHC 33.5 RDW 12.9 MPV 7.6 Neutrophils % 64.0 Lymphocytes % 27.8 Monocytes % 5.7 Eosinophils % 1.6 Basophils % 0.9 - Medications Given in the ED: ED Medications Discontinued Medications Generic Name Dose Route Start Last Admin Trade Name Freq PRN Reason Stop Dose Admin Ketorolac Tromethamine 15 mg 11/01/18 17:05 11/01/18 17:40 Toradol Injection - IVPUSH 11/01/18 17:06 15 mg ONCE ONE Administration Sodium Chloride 1,000 ml 11/01/18 17:05 11/01/18 17:40 Normal Saline - IV 11/01/18 17:06 1,000 ml ONCE ONE Administration Medical Decision Making - Medical Decision Making Patient signed out by Dr. Hastings 53 yo F w/no significant PMH presenting with left flank pain with dysuria. CTAP: "CT scan of the abdomen pelvis without oral and intravenous contrast Coronal and sagittal reformatted images were obtained Compared to prior CT scan of the chest dated 08/13/2014 Approximately 3 mm calcified nodule in the right lower lobe is again seen compatible with a calcified granuloma. The rest of the included lower lung appears unremarkable and the heart is within normal limits in size. The stomach is over distended without wall thickening. The liver is enlarged measuring 19.5 cm in craniocaudal length with homogeneous attenuation. Evaluation of the spleen, pancreas, gallbladder, both adrenal glands and both kidneys appear unremarkable. There is no evidence of hydroureteronephrosis, renal or ureteral stone, bilaterally. Partially distended urinary bladder without gross wall thickening or intraluminal stones. There is no evidence of small bowel obstruction normal-appearing terminal ileum. Nonvisualization of the appendix. Normal stool burden in the colon without wall thickening. The uterus is within normal limits in size. Right and left adnexal metallic castings compatible with prior initial procedure. Perirectal and pericecal fat are clear. No free air, free fluid or enlarged mesenteric lymph nodes are identified. A small fat-containing right and left umbilical hernia are present. Small fat-containing umbilical hernia. Visualized osseous structures appear intact with mild to moderate degenerative disc disease and vacuum phenomena at L4-L5 as well as at L5-S1 level. No suspicious bone lesion is identified. Sclerotic changes involving the symphysis pubis suggestive of osteitis pubis. Impression: See discussion above. There is no evidence of hydroureteronephrosis , renal or ureteral stone, bilaterally. Partially distended urinary bladder without wall thickening or gross intraluminal stones. There is no evidence of small bowel obstruction. Small fat-containing umbilical hernia. Small fat- containing right and left inguinal hernia. Findings suggestive of osteitis pubis " Pending UA 11/01/18 20:10 UA negative for infection 11/01/18 20:23 Patient endorsing pain upon breathing CTA chest ordered to rule out PE Plan for pelvic exam, however patient not present at bedside. Not at CT scan 11/01/18 20:49 Pelvic Exam: External genitalia without erythema, exudate or discharge. Vaginal vault is without discharge. Cervix is of normal color without lesion. The os is closed. There is no bleeding noted. Uterus is noted to be of appropriate size and nontender. No cervical motion tenderness is seen. No masses are palpated. The adnexa are without masses or tenderness. Tenderness upon palpation of the symphysis pubis CTA chest negative for acute pathology but with 2mm calcified nodule/granuloma: "? 5d CT scan of the chest following intravenous contrast. A post intravenous contrast CT angiogram of the chest was performed utilizing pulmonary embolus protocol. Coronal/ sagittal reconstruction images were obtained. 100 cc of Omnipaque 350 was intravenously injected 100 No gross filling defect is seen within the main pulmonary artery and its proximal branches, bilaterally. The thoracic and visualized portion of the upper abdominal aorta is normally enhanced without evidence of aneurysmal dilatation or dissection. The heart is within normal limits in size. No gross mediastinal or hilar enlarged lymph nodes are identified. Tiny calcified nodule in the right lower lobe measuring 2 mm compatible with a calcified granuloma No pneumothorax or pleural effusion is seen, bilaterally. Included portion of the upper abdomen appears unremarkable. Visualized osseous structures appear intact with multilevel mild and mild to moderate degenerative disc disease as well as mild empty spondylosis in the thoracic spine IMPRESSION: There is no evidence of a pulmonary embolus within the main pulmonary artery and its proximal branches, bilaterally. No enlarged mediastinal or hilar lymph nodes are identified. 2 mm calcified nodule/ granuloma in the right lower lobe, laterally. The rest of the lung is clear. " Plan to discharge with return precautions Naprosyn sent to pharmacy Patient instructed to follow up with business mail entry clerk regarding osteitis pubis Patient instructed to follow up with PCP regarding 2mm calcified nodule/ granuloma 11/01/18 22:33 *DC/Admit/Observation/Transfer Diagnosis at time of Disposition: Dysuria, Osteitis pubis - Discharge Dispostion Disposition: HOME Condition at time of disposition: Stable - Prescriptions Prescriptions: Naproxen [Naprosyn] 500 mg PO BID #15 tablet - Referrals Referrals: Lesley Hinkle [Primary Care Provider] - - Patient Instructions Additional Instructions: You came into the ED for pain when you urinate and when you breathe. Urinalysis shows you have a urinary tract infection. The CT scan of your chest did not show a blood clot. The CT scan of your abdomen and pelvis showed ostitis pubis, which is an inflammation of the symphysis pubis. Anti-inflammatory prescription has been sent to your pharmacy. Take as instructed. Continue to take antibiotics for the urinary tract infection that you have already been prescribed and make sure you finish the course. Follow up with your business mail entry clerk in the next 72 hours to discuss this ED visit and for further evaluation of your symptoms. Your care is not complete until you do so. Call and make an appointment. The CT scan also showed a small 2 mm calcified nodule/granuloma in your lung for which you should follow up with your primary care doctor. A copy of the CT reports have been given to you. Immediate medical attention is required if you experience: you develop high fevers, chills, persistent vomiting, stop urinating, or any new or concerning symptoms. If you think you have an emergency, call for medical help right away. - Post Discharge Activity Forms/Work/School Notes: Back to Work
[2018-11-01 20:15] LABS: PH,URINE 5.5 (5.0-8.0); URINE APPEARANCE CLEAR; URINE BILIRUBIN NEGATIVE (NEGATIVE); URINE COLOR YELLOW; URINE GLUCOSE (UA) NEGATIVE (NEGATIVE); URINE KETONE NEGATIVE (NEGATIVE); URINE LEUK ESTERASE NEGATIVE (NEGATIVE); URINE NITRITE NEGATIVE (NEGATIVE); URINE PROTEIN NEGATIVE (NEGATIVE); URINE UROBILINOGEN 0.2 mg/dL (0.2-1.0)
[2018-11-01 23:01] LABS: HYALINE CASTS 0 /lpf (0-8); URINE BACTERIA 5.1 /hpf (NEGATIVE); URINE RBC 0.7 /hpf (0-4); URINE WBC 0.9 /hpf (0-5)
[2018-11-01 23:17] VITALS: BP 128/77; PULSE 66; TEMP 98.6
== END 2018-11-01 23:32 ==
LOC: JER 16:09
PROC: 3E0333Z Introduction of Anti-inflammatory into Peripheral Vein, Percutaneous Approach (ICD-10-PCS; principal; 2018-11-01)
DX: R30.0 Dysuria (principal); M86.9 Osteomyelitis, unspecified; Z87.440 Personal history of urinary (tract) infections
CPT/HCPCS: 36415; 71275-TC; 74176-TC; 80048; 81003; 85025; 87086; 99284-25; J7030

== ENCOUNTER 2021-01-01 09:54 | Emergency (ER) | payer OTHER ==
[2021-01-01 10:16] VITALS: BP 135/69; PULSE 68; TEMP 98.3; BMI 36.6
[2021-01-01] MEDS ORDERED: METHOCARBAMOL 500 MG TABLET PO ONE (11:43)
[2021-01-01] MEDS ORDERED: NAPROXEN 500 MG TABLET PO ONE (11:43)
[2021-01-01 11:56] LABS: BASO % 0.6 % (0-2.0); EOS % 1.3 % (0-4.5); HEMATOCRIT 39.2 % (32.4-45.2); HEMOGLOBIN 13.4 GM/dL (10.7-15.3); LYMPH % 29.6 % (8-40); MCH 31.5 pg (25.7-33.7); MCHC 34.1 g/dl (32.0-36.0); MEAN CELL VOLUME 92.3 fl (80-96); MEAN PLT VOLUME 7.5 fl (7.5-11.1); MONO % 5.9 % (3.8-10.2); NEUT % 62.6 % (42.8-82.8); PLATELET COUNT 268 10^3/uL (134-434); RBC 4.25 M/mm3 (3.60-5.2); RDW 12.6 % (11.6-15.6); WHITE BLOOD COUNT 6.4 K/mm3 (4.0-10.0)
[2021-01-01 12:03] LABS: EPI CELLS 27 /uL (0-25.1); HCG,QUALITATIVE URINE Negative; HYALINE CASTS 0 /uL (0-3.1); PH,URINE 5.5 (5.0-8.0); URINE APPEARANCE CLEAR; URINE BACTERIA 19 /uL (0-1359); URINE BILIRUBIN NEGATIVE (NEGATIVE); URINE COLOR YELLOW; URINE GLUCOSE (UA) NEGATIVE (NEGATIVE); URINE KETONE NEGATIVE (NEGATIVE); URINE LEUK ESTERASE 1+ (NEGATIVE); URINE NITRITE NEGATIVE (NEGATIVE); URINE PROTEIN NEGATIVE (NEGATIVE); URINE RBC 22 /uL (0-23.9); URINE WBC 6 /uL (0-25.8)
[2021-01-01 12:21] LABS: ALBUMIN 4.1 g/dl (3.4-5.0); CALCIUM 9.2 mg/dL (8.5-10.1)
[2021-01-01 12:22] LABS: BLOOD UREA NITROGEN 20.7 mg/dL (7-18)
[2021-01-01 12:25] LABS: CREATININE 0.8 mg/dL (0.55-1.3)
[2021-01-01 12:26] LABS: BILIRUBIN,TOTAL 0.5 mg/dL (0.2-1); TOT PROT 7.5 g/dl (6.4-8.2)
[2021-01-01] MEDS ORDERED: METHOCARBAMOL 500 MG TABLET ONE (12:51)
[2021-01-01] MEDS ORDERED: NAPROXEN 500 MG TABLET ONE (12:52)
== END 2021-01-01 13:24 | disposition home or self-care (01) ==
LOC: JER 09:54
DX: M62.830 Muscle spasm of back (principal); R10.9 Unspecified abdominal pain; M79.662 Pain in left lower leg
CPT/HCPCS: 36415; 76775-TC; 80053; 81003; 84703; 85025; 87086; 93971-TC; 99284-25

== ENCOUNTER 2023-08-31 13:23 | Emergency (ER) | payer OTHER ==
[2023-08-31 13:37] VITALS: BP 124/74; PULSE 74; RESP 18; TEMP 98; BMI 36.5
[2023-08-31] MEDS ORDERED: NAPROXEN 500 MG TABLET ONE (14:23)
[2023-08-31] MEDS: NAPROXEN 500 MG TABLET PO ONE (14:24)
== END 2023-08-31 16:35 | disposition home or self-care (01) ==
LOC: JERFT 13:23 → JER 13:23
DX: S20.211A Contusion of right front wall of thorax, initial encounter (principal); W01.0XXA Fall on same level from slipping, tripping and stumbling without subsequent striking against object, initial encounter
CPT/HCPCS: 71046-TC-FY; 71101-TC-RT-FY; 71250-TC; 99284-25

== ENCOUNTER 2024-01-10 18:11 | Emergency (ER) | payer OTHER ==
[2024-01-10 18:25] VITALS: BP 117/81; PULSE 74; RESP 18; TEMP 98.4; BMI 35.2
[2024-01-10 19:23] LABS: EPI CELLS >36 /uL (0-25.1); HYALINE CASTS 0 /uL (0-3.1); PH,URINE 5.5 (5.0-8.0); URINE APPEARANCE CLEAR; URINE BACTERIA 223 /uL (0-1359); URINE BILIRUBIN NEGATIVE (NEGATIVE); URINE COLOR YELLOW; URINE GLUCOSE (UA) NEGATIVE (NEGATIVE); URINE KETONE NEGATIVE (NEGATIVE); URINE LEUK ESTERASE 1+ (NEGATIVE); URINE NITRITE NEGATIVE (NEGATIVE); URINE PROTEIN NEGATIVE (NEGATIVE); URINE RBC 31 /uL (0-23.9); URINE UROBILINOGEN 0.2 mg/dL (0.2-1.0); URINE WBC 35 /uL (0-25.8)
[2024-01-10 20:07] LABS: BASO % 0.9 % (0-2.0); EOS % 1.6 % (0-4.5); HEMATOCRIT 39.8 % (32.4-45.2); HEMOGLOBIN 13.4 GM/dL (10.7-15.3); LYMPH % 30.8 % (8-40); MCH 30.7 pg (25.7-33.7); MCHC 33.6 g/dl (32.0-36.0); MEAN CELL VOLUME 91.6 fl (80-96); MONO % 5.9 % (3.8-10.2); NEUT % 60.8 % (42.8-82.8); PLATELET COUNT 267 10^3/uL (134-434); RBC 4.34 M/mm3 (3.60-5.2); RDW 13.1 % (11.6-15.6); WHITE BLOOD COUNT 7.7 K/mm3 (4.0-10.0)
[2024-01-10 20:28] LABS: ALBUMIN 3.9 g/dl (3.4-5.0); BLOOD UREA NITROGEN 12.6 mg/dL (7-18)
[2024-01-10] MEDS ORDERED: AMOX TR/POT CLAV 875MG/125MG TABLETS (FP) ONE ×2 (20:29)
[2024-01-10] MEDS: AMOX TR/POT CLAV 875MG/125MG TABLETS (FP) PO ONE (20:32)
[2024-01-10 20:33] LABS: BILIRUBIN,TOTAL 0.3 mg/dL (0.2-1); CREATININE 0.8 mg/dL (0.55-1.3); TOT PROT 6.9 g/dl (6.4-8.2)
== END 2024-01-10 20:55 | disposition home or self-care (01) ==
LOC: JERFT 18:11
DX: N39.0 Urinary tract infection, site not specified (principal); R35.0 Frequency of micturition
CPT/HCPCS: 36415; 80053; 81003; 85025; 99283-25

== ENCOUNTER 2024-01-21 11:26 | Emergency (ER) | payer OTHER ==
[2024-01-21 11:34] VITALS: BP 135/88; PULSE 68; RESP 16; TEMP 98.8; BMI 35.4
[2024-01-21] MEDS ORDERED: DEXAMETHASONE SOD PHOSPHATE 10 MG/1 ML VIAL ONE (11:55)
[2024-01-21] MEDS ORDERED: ONDANSETRON *ODT* 4 MG TABLET ONE (11:55)
[2024-01-21] MEDS: ONDANSETRON *ODT* 4 MG TABLET SL ONE (12:00)
[2024-01-21] MEDS: DEXAMETHASONE SOD PHOSPHATE 10 MG/1 ML VIAL IM ONE (12:00)
== END 2024-01-21 12:06 | disposition home or self-care (01) ==
LOC: JERFT 11:26
PROC: 3E023GC Introduction of Other Therapeutic Substance into Muscle, Percutaneous Approach (ICD-10-PCS; principal; 2024-01-21)
DX: L23.7 Allergic contact dermatitis due to plants, except food (principal)
CPT/HCPCS: 99284-25; J1100; Q0162